=== PATIENT | male | born 1935 | race Caucasian/White ===

== ENCOUNTER 2023-08-21 00:27 | Emergency (ER) | payer MEDICARE, OTHER, SELFPAY ==
[2023-08-21 00:29] VITALS: BP 145/58
[2023-08-21 01:00] VITALS: BP 151/65
--- NOTE | 2023-08-21 01:52 | ED.GENMED ---
History of Present Illness
General
Chief Complaint: Fall
Source: patient and skilled nursing
Exam Limitations: dementia
Time Seen by Provider: 08/21/23 01:04
Travel History
Have you had any contact with someone who has COVID-19?: No
Do you have any symptoms of coronavirus? Fever > 100 degrees, chills, cough, shortness of breath, sore throat, loss of taste or smell, muscle aches, or headache?: No
History of Present Illness
History of Present Illness:
88-year-old male who presents after he had a fall. The fall apparently was witnessed by his roommate and the patient struck his head on the wheelchair. This was 'yesterday'. It is unclear as to whether this was on August 19 or August 20 as it
is currently after midnight. This evening however, the nurse reports that he seemed a little more confused than usual. The patient was sent for evaluation. The patient is unsure why he is here current complaints. He does have a noted history of
traumatic brain injury, Parkinson's and dementia. However, he is only treated with Tylenol as needed at the facility. The patient has a court reported guardian
Past History
Past History
ED Past Medical History: Other (Dementia, Parkinson's, traumatic brain injury, hypertension, anxiety, dysphagia)
Phy Exam
Physical Exam
Physical Exam:
CONSTITUTIONAL Patient alert and oriented to person. Vital signs reviewed.
HEAD superficial laceration with Steri-Strips intact to the left forehead with well-approximated wound edges. No active bleed
EYES eyelids normal to inspection, Extraocular muscles intact, Conjunctiva normal, Sclera normal.
NECK normal range of motion, Trachea midline, no jugular venous distention. No obvious deformities or tenderness
RESPIRATORY CHEST No respiratory distress noted, Chest expansion equal
ABDOMEN abdomen nontender, Bowel sounds normal. No distention.
BACK normal inspection, no obvious deformities
UPPER EXTREMITY range of motion normal, Motor strength normal, no cyanosis, no edema.
LOWER EXTREMITY range of motion normal, Motor strength normal, no cyanosis, no edema.
NEURO Speech clear, No focal motor deficits, Cranial Nerves intact to screening exam.
SKIN skin warm, dry, and normal in color.
Course
Orders/Labs/Results
Orders:
Orders
08/21/23 00:33
CT Head W/o Iv Contrast Urgent
Comment:
Reason For Exam: fall/possible head strike
Cervical Spine wo Contrast CT [CT Cervical Spine W/o Iv Contr] Urgent
Comment:
Reason For Exam: fall/possible head strike
08/21/23 02:11
Complete Blood Count/With Diff Urgent
Comprehensive Metabolic Panel Urgent
Prothrombin Time Urgent
Abnormal Lab Results
08/21/23
02:11
RBC 4.27 L 10^6/uL
(4.70-6.10)
Hgb 12.7 L g/dL
(13.0-18.0)
Hct 38.4 L %
(39.0-52.0)
MPV 11.3 H fL
(7.4-10.4)
Absolute Neuts (auto) 6.8 H 10^3/uL
(1.4-6.5)
Absolute Monos (auto) 1.0 H 10^3/uL
(0.1-0.6)
Lymphocytes % 13.8 L %
(20.5-51.1)
Monocytes % 10.6 H %
(1.7-9.3)
BUN 26 H mg/dl
(9-20)
Glucose 125 H mg/dl
(70-99)
08/21/23 02:11
08/21/23 02:11
Vital Signs
Initial and Last Documented VS:
Initial Vital Signs
Temp Pulse Resp BP Pulse Ox
97.9 F 65 19 145/58 96
08/21/23 00:29 08/21/23 00:29 08/21/23 00:29 08/21/23 00:29 08/21/23 00:29
Last Documented Vital Signs
Temp Pulse Resp BP Pulse Ox
97.9 F 65 19 145/58 96
08/21/23 00:29 08/21/23 00:29 08/21/23 00:29 08/21/23 00:29 08/21/23 00:29
MDM/Problems Addressed
Differential Diagnosis Includes:
Skull fracture, concussion, intracranial hemorrhage
MDM/Problems Addressed:
Intracranial hemorrhage, head injury, skin laceration
*Radiology
Radiology exam reviewed: preliminary read by ED provider (Small area of intracranial hemorrhage noted) and radiology read reviewed
*Pulse Oximetry
Patient hypoxic: no
*Critical Care Note
Total Time (30-74mins, 75-104mins- exclusive of procedures): 35 minutes
Data Reviewed
Source: records and skilled nursing
Prescriptions/Medications Considered But Not Given:
Consider anticoagulant reversal but apparently patient is only on Tylenol at home
Patient Management
Discussion with other providers: Economic Development Manager (Case discussed with of [facility] trauma) and Radiologist (Case discussed with radiologist from [facility])
Escalation/DeEscalation of care consider admission/obs:
Case was discussed with the patient's Meera Sigala ([phone]). Abnormal CT. Does have intracranial hemorrhage but question whether this hemorrhage caused the fall or the hemorrhage was subsequent to the fall. Likely will need MRI of the
brain to further delineate whether this patient has a recent or old stroke, mass or just traumatic intracranial hemorrhage. Will transfer.
ED Attending Note
-
Portions of this chart may have been created with voice recognition software.� Occasional wrong word or��sound alike� substitutions may have occurred due to the inherent limitations of voice recognition software.
Discharge Plan
Departure
Patient Disposition: Acute Care Hospital
Date of Disposition: 08/21/23
Time of Disposition: 02:05
Discharge Problem:
Head injury, Intracranial hemorrhage
Prescriptions:
No Action
acetaminophen [Tylenol] 325 mg Tablet
650 mg PO Q6H PRN (Reason: pain)
Hospital Transfer
Other hospital: [facility]
I certify that the patient requires transfer: Yes
Discussed case with accepting physician: Lamine
Reason for transfer: specialties available
Interventions
Interventions:
*Risk Screen - Suicide Last Done: 08/21/23 00:29
*General Assessment Last Done: 08/21/23 00:29
*Neglect/Abuse Screening Last Done: 08/21/23 00:29
ED- Fall Risk Assessment Last Done: 08/21/23 00:38
*ED COVID-19 Vaccine History Last Done: 08/21/23 00:29
ED-Musculoskeletal Assessment Last Done: 08/21/23 00:38
ED- Neurological Assessment Last Done: 08/21/23 00:38
ED-Skin Assessment Last Done: 08/21/23 00:38
[2023-08-21 02:20] LABS: % Basophils 0.4 % (0-2); % Eosinophils 1.4 % (0-6); % Immature Granulocytes 0.4 % (0-0.5); % Lymphocytes 13.8 % (20.5-51.1); % Monocytes 10.6 % (1.7-9.3); % Neutrophils 73.4 % (42.2-75.2); Absolute Eosinophils 0.1 10^3/uL (0-0.7); Absolute Lymphocytes 1.3 10^3/uL (1.2-3.4); Absolute Neutrophils 6.8 10^3/uL (1.4-6.5); Hematocrit 38.4 % (39.0-52.0); Hemoglobin 12.7 g/dL (13.0-18.0); Mean Corp Hgb Conc. 33.1 g/dL (33.0-37.0); Mean Corpuscular Hgb 29.7 pg (27.0-31.0); Mean Corpuscular Volume 89.9 fL (80.0-94.0); Mean Platelet Volume 11.3 fL (7.4-10.4); Nucleated Red Blood Cells % 0 % (-); Platelet Count 189 10^3/uL (130-400); Red Blood Cell Count 4.27 10^6/uL (4.70-6.10); Red Cell Dist. Width 13.1 % (11.5-14.5); White Blood Cell Count 9.3 10^3/uL (4.8-10.8)
[2023-08-21 02:32] LABS: INR 1.09; PT 13.9 Sec (11.4-14.6)
[2023-08-21 02:34] LABS: ALT (SGPT) < 10 U/L (0-50); AST (SGOT) 19 U/L (17-59); Albumin 3.6 g/dl (3.5-5.0); Alkaline Phosphatase 106 U/L (38-126); Blood Urea Nitrogen 26 mg/dl (9-20); Calcium 9.5 mg/dl (8.4-10.2); Carbon Dioxide 29 mmol/L (22-30); Chloride 103 mmol/L (98-107); Glucose 125 mg/dl (70-99); Potassium 4.6 mmol/L (3.5-5.1); Sodium 140 mmol/L (135-145); Total Bilirubin 0.5 mg/dl (0.2-1.3); Total Protein 6.9 g/dl (6.3-8.2); eGFR > 60.00
== END 2023-08-21 03:06 | disposition short-term general hospital (02) ==
LOC: EMR 00:27
PROVIDERS: EMERGENCY PHYSICIAN Emergency Medicine; FAMILY PHYSICIAN Internal Medicine
DX: S06.6XAA Traumatic subarachnoid hemorrhage with loss of consciousness status unknown, initial encounter (principal); W19.XXXA Unspecified fall, initial encounter; Z87.820 Personal history of traumatic brain injury; F02.80 Dementia in other diseases classified elsewhere, unspecified severity, without behavioral disturbance, psychotic disturbance, mood disturbance, and anxiety; G20.A1 Parkinson's disease without dyskinesia, without mention of fluctuations
CPT/HCPCS: 99291; 70450; 72125; 80053; 85025; 85610